=== PATIENT | male | born 1960 | race Caucasian/White ===

== ENCOUNTER → 2020-02-12 09:26 | Outpatient (BNVA) | payer BC, SELFPAY | PROVIDERS: Family Provider Nurse Practitioner Family; PCP Nurse Practitioner Family; Visit Provider Nurse Practitioner Family | DX: Z79.899 Other long term (current) drug therapy (principal); Z13.220 Encounter for screening for lipoid disorders; Z12.5 Encounter for screening for malignant neoplasm of prostate | CPT/HCPCS: 80048; 80061; G0103 ==

== ENCOUNTER → 2020-04-08 11:09 | Outpatient (BNVA) | payer BC, SELFPAY | PROVIDERS: Family Provider Nurse Practitioner Family; PCP Nurse Practitioner Family; Visit Provider Nurse Practitioner Family | DX: Z11.59 Encounter for screening for other viral diseases (principal) | CPT/HCPCS: 87635 ==

== ENCOUNTER → 2021-01-03 15:36 | Outpatient (BNVA) | payer BC, SELFPAY | PROVIDERS: Family Provider Nurse Practitioner Family; PCP Nurse Practitioner Family; Visit Provider Nurse Practitioner Family | DX: Z00.00 Encounter for general adult medical examination without abnormal findings (principal); I10 Essential (primary) hypertension | CPT/HCPCS: 80048 ==

== ENCOUNTER 2021-01-18 09:52 | Emergency (ER) | payer BC, SELFPAY ==
[2021-01-18 09:56] VITALS: BP 114/68; PULSE 61; RESP 19; TEMP 36.4; O2SAT 92; BMI 31.7
--- NOTE | 2021-01-18 10:01 | XR_ITS ---
WS: [id number] Portable AP upright chest, 01/18/2021 Clinical Data: chest pain Comparison: None. Findings: No nodules, masses or effusions are seen. The heart is normal. The pulmonary vascularity is not increased. No pneumonia or pneumothorax is seen. There are monitor leads on the chest wall. XR/XR chest 1V portable [id number] Impression: Negative chest.
[2021-01-18 10:02] VITALS: O2SAT 96
--- NOTE | 2021-01-18 10:02 | ECG_ITS ---
[facility] Test Date: 2021-01-18 Pat Name: Terrie Faustin Department: Room: Gender: Male Service Now Developer: : 1960 Requested By: Tavon Cain Order Number: [id number] Alex MD: Kathy Mistry M.D. Measurements Intervals [place] Rate: 63 P: 31 PA: 170 QRS: -12 QRSD: 93 T: 26 QT: 418 QTc: 430 Interpretive Statements SINUS RHYTHM MODERATE VOLTAGE CRITERIA FOR LVH, CONSIDER NORMAL VARIANT [MEETS CRITERIA IN ONE OF: R(aVL), S(V1), R(V5), R(V5/V6)+S(V1)] No previous ECG available for comparison Electronically Signed On 01-19-2021 7:38:17 CDT by Kathy Mistry M.D. [id number]
--- NOTE | 2021-01-18 10:03 | W.ED.CHESTPA ---
HPI - Chest Pain General: Chief Complaint: Chest Pain Stated Complaint: CHEST PAIN, SYNCOPAL EPISODE Time Seen by Provider: 01/18/21 09:55 History of Present Illness: HPI narrative: 60-year-old male presents emergency room with complaint chest pain and had a syncopal episode. He went to a local clinic with his complaint of chest pain they gave him a sublingual nitro he was going to drive himself to the emergency room we went out to the parking lot he had a syncopal-like episodes became very diaphoretic states he showed some chest discomfort its mostly what he calls described as sore there is no real radiation of pain is not been short of breath with it. He has no known history of coronary disease diabetes or smoking he did previously had a stress test that he was told was normal but it was over a decade ago. Not recently been ill with cough cold fever sweats or chills. MD complaint: chest pain Onset (ago): hour(s) Timing of current episode: episodic Prior episodes: No Onset: during rest and associated with drug use (Syncopal episode after use of sublingual nitro) Pain location: left chest Pain radiation: none Severity: mild Quality: tightness, aching and heaviness Relieving factors: nothing Exacerbating factors: nothing Associated symptoms: Reports diaphoresis, nausea and syncope; Deny abdominal pain, dyspnea, fever(s), leg edema, palpitations, sense of impending doom or vomiting Treatment prior to arrival: nitroglycerin Review of Systems Const: Reports: diaphoresis; Denies: fever(s) ENMT: Denies: throat pain, ear or mastoid pain, nasal discharge or nasal congestion Card: Reports: syncope; Denies: palpitations Resp: Denies: dyspnea GI: Reports: nausea; Denies: abdominal pain or vomiting : Denies: flank pain, dysuria, urinary frequency or urinary urgency Skin/Breast: Denies: rash or pruritus PFSH ED PFSH: Medical History HTN (hypertension) Family History Father Hypertension Social History Second hand smoke exposure: No Physical Exam Const: COMMON NORMALS: no acute distress GENERAL APPEARANCE: cooperative and comfortable ORIENTATION/CONSCIOUSNESS: Yes awake, Yes oriented to person, Yes oriented to place and Yes oriented to time HENMT: COMMON NORMALS: normocephalic, atraumatic, hearing grossly normal bilaterally and external ears normal HEAD & SCALP: normocephalic and atraumatic EXTERNAL EAR: Yes external ears normal Eye: COMMON NORMALS: Equal, round and reactive pupils present, EOMs intact bilaterally, conjunctivae normal and no scleral icterus CONJUNCTIVA: Yes conjunctivae normal PUPIL: Yes Equal, round and reactive pupils present Neck/C-Spine: COMMON NORMALS: full ROM, no lymphadenopathy, supple and no JVD Lymph: LYMPHATIC: no lymphadenopathy noted and no lymphedema noted Resp: COMMON NORMALS: normal respiratory effort, No retractions, No use of accessory muscles and clear to auscultation bilaterally AUSCULTATION: clear to auscultation bilaterally Cardio: COMMON NORMALS: no JVD, regular rate, regular rhythm and No murmurs present (Cardio) RATE: regular rate RHYTHM: regular rhythm GI: COMMON NORMALS: Soft to palpation and No hepatosplenomegaly present AUSCULTATION: Yes normoactive bowel sounds PALPATION: Yes Soft to palpation, No Tenderness to palpation present (GI), No Guarding due to palpation present (GI) and Yes No hepatosplenomegaly present Extremity: COMMON NORMALS: normal to inspection, capillary refill normal, no clubbing, cyanosis or edema, no calf tenderness and no pedal edema Neuro: SENSORIUM/ORIENTATION: Yes oriented to person, Yes oriented to place and Yes oriented to time Skin: COMMON NORMALS: no rashes or lesions noted GENERAL SKIN EXAM: no rashes or lesions noted Course Vital Signs: Vital signs: Vital Signs Temperature 97.5 F L 01/18/21 09:56 Pulse Rate 61 01/18/21 09:56 Respiratory Rate 19 H 01/18/21 09:56 Blood Pressure 114/68 01/18/21 09:56 Pulse Oximetry 96 01/18/21 10:02 MDM - Chest Pain MDM Narrative: Medical decision making narrative: Serial cardiac enzymes negative. Ordering to have him take baby aspirin daily set him up for an outpatient Lexiscan sestamibi stress test return to the emergency room if he has further problems. Lab Data: Labs: Lab Results 01/18/21 01/18/21 01/18/21 Range/Units 10:30 10:30 10:30 WBC 6.8 (4.0-10.0) 10^3/ uL RBC 4.86 (4.1-5.3) 10^6/u L Hgb 13.8 (11.7-16.6) g/dL Hct 41.3 L (42.0-52.0) % MCV 85.0 (80-94) fL MCH 28.4 (28.0-34.0) pg MCHC 33.4 (30.0-36.0) g/dL RDW 13.5 (12.1-15.1) % Plt Count 215 (130-400) 10^3/c mm MPV 10.8 H (7.4-10.4) fL Neut % (Auto) 58.1 % Lymph % (Auto) 29.5 % Robertson % (Auto) 9.1 % Eos % (Auto) 2.6 % Baso % (Auto) 0.4 % Neut # (Auto) 3.95 (1.8-7.7) 10^3/u L Lymph # (Auto) 2.0 (0.8-4.8) 10^3/u L Robertson # (Auto) 0.6 (0.2-0.9) 10^3/u L Eos # (Auto) 0.2 (0.0-0.8) 10^3/u L Baso # (Auto) 0.0 (0.0-0.1) 10^3/u L Nucleated RBC % (a uto) 0 % Nucleated RBCs # 0.0 /100WBC Sodium 139 (136-145) mmol/L Potassium 4.3 (3.5-5.1) mmol/L Chloride 103 (98-107) mmol/L Carbon Dioxide 24 (22-29) mmol/L Anion Gap 16.3 (5-19) BUN 7 (6-20) mg/dL Creatinine 0.7 (0.7-1.2) mg/dL GFR Calculation 115.4 (90-130) mL/min Glucose 132 H (65-115) mg/dL Calculated Osmolal ity 288 (285-295) mOsm/k g Calcium 8.6 (8.5-10.5) mg/dL Total Bilirubin 0.5 (0.15-1.2) mg/dL AST 13 (0-40) U/L ALT 17 (0-41) U/L Alkaline Phosphata se 104 (40-130) IU/L Troponin T Baselin e 6 (0-15) ng/L Troponin T 120 Min yocha dehe (0-15) ng/L Delta Troponin T (0-10) ABS# Total Protein 6.5 L (6.6-8.7) g/dL Albumin 4.1 (3.5-5.2) g/dL Globulin 2.4 (1.3-4.6) g/dL 01/18/21 Range/Units 12:48 WBC (4.0-10.0) 10^3/ uL RBC (4.1-5.3) 10^6/u L Hgb (11.7-16.6) g/dL Hct (42.0-52.0) % MCV (80-94) fL MCH (28.0-34.0) pg MCHC (30.0-36.0) g/dL RDW (12.1-15.1) % Plt Count (130-400) 10^3/c mm MPV (7.4-10.4) fL Neut % (Auto) % Lymph % (Auto) % Robertson % (Auto) % Eos % (Auto) % Baso % (Auto) % Neut # (Auto) (1.8-7.7) 10^3/u L Lymph # (Auto) (0.8-4.8) 10^3/u L Robertson # (Auto) (0.2-0.9) 10^3/u L Eos # (Auto) (0.0-0.8) 10^3/u L Baso # (Auto) (0.0-0.1) 10^3/u L Nucleated RBC % (a uto) % Nucleated RBCs # /100WBC Sodium (136-145) mmol/L Potassium (3.5-5.1) mmol/L Chloride (98-107) mmol/L Carbon Dioxide (22-29) mmol/L Anion Gap (5-19) BUN (6-20) mg/dL Creatinine (0.7-1.2) mg/dL GFR Calculation (90-130) mL/min Glucose (65-115) mg/dL Calculated Osmolal ity (285-295) mOsm/k g Calcium (8.5-10.5) mg/dL Total Bilirubin (0.15-1.2) mg/dL AST (0-40) U/L ALT (0-41) U/L Alkaline Phosphata se (40-130) IU/L Troponin T Baselin e (0-15) ng/L Troponin T 120 Min yocha dehe 6.00 (0-15) ng/L Delta Troponin T 0 (0-10) ABS# Total Protein (6.6-8.7) g/dL Albumin (3.5-5.2) g/dL Globulin (1.3-4.6) g/dL Discharge Plan Discharge Patient Disposition: Home Clinical Impression: Atypical chest pain Condition: Stable Prescriptions: New aspirin 81 mg tablet,delayed release (DR/EC) 81 mg PO DAILY Qty: 30 RF: 0 No Action multivitamin Tablet 1 tab PO QAM RF: 0 hydrocodone-acetaminophen 10-325 mg tablet 1 tab PO Q4H PRN (Reason: Pain) RF: 0 Tylenol Extra Strength 500 mg Tablet 1,000 mg PO PRN RF: 0 amoxicillin 500 mg tablet 500 mg PO QID RF: 0 ibuprofen 200 mg Tablet 400 mg PO PRN RF: 0 lisinopril 10 mg tablet 10 mg PO BEDTIME RF: 0 Discharge Orders: Discharge ED (Routine); Ordered 01/18/21 Ordered By: Tavon Pleitez Referrals: Sheree Forman FNP [Primary Care Provider] - Discharge Diet: Usual diet Discharge Activity: Limit activity as instructed Patient Instructions: Opioid Safety Activity Restrictions/Additional Instructions: Case management will set up a stress test for you. Take baby aspirin daily follow-up with your primary care doctor next week return to the emergency room if you have any further episodes of chest discomfort Coding Level of Care Code ED Operator Specialist Communications for [employer] Fwd Exam Comprehensive
[2021-01-18] MEDS: aspirin 81 mg Chew Tablet 324 MG PO (10:15)
[2021-01-18 10:42] LABS: Basophils % 0.4 %; Eosinophils # 0.2 10^3/uL (0.0-0.8); Eosinophils % 2.6 %; Hematocrit 41.3 % (42.0-52.0); Hemoglobin 13.8 g/dL (11.7-16.6); Lymphocytes % 29.5 %; Mean Corpuscular HGB Conc 33.4 g/dL (30.0-36.0); Mean Corpuscular Hemoglobin 28.4 pg (28.0-34.0); Mean Platelet Volume 10.8 fL (7.4-10.4); Monocytes # 0.6 10^3/uL (0.2-0.9); Monocytes % 9.1 %; Neutrophils # 3.95 10^3/uL (1.8-7.7); Neutrophils % 58.1 %; Nucleated Red Blood Cells % 0 %; Platelet Count 215 10^3/cmm (130-400); Red Blood Count 4.86 10^6/uL (4.1-5.3); Red Cell Distribution Width 13.5 % (12.1-15.1); White Blood Count 6.8 10^3/uL (4.0-10.0)
[2021-01-18 11:08] LABS: Troponin(5th) Baseline 6 ng/L (0-15)
[2021-01-18 11:11] LABS: Alanine Aminotransferase 17 U/L (0-41); Albumin Level 4.1 g/dL (3.5-5.2); Alkaline Phosphatase 104 IU/L (40-130); Anion Gap 16.3 (5-19); Aspartate Amino Transferase 13 U/L (0-40); Blood Urea Nitrogen 7 mg/dL (6-20); Calcium 8.6 mg/dL (8.5-10.5); Carbon Dioxide 24 mmol/L (22-29); Chloride 103 mmol/L (98-107); Creatinine Clr Calc Pharmacy 151.2971; Globulin 2.4 g/dL (1.3-4.6); Glomerular Filtration Rate 115.4 mL/min (90-130); Glucose 132 mg/dL (65-115); Osmolality Calculated 288 mOsm/kg (285-295); Potassium 4.3 mmol/L (3.5-5.1); Sodium 139 mmol/L (136-145); Total Bilirubin 0.5 mg/dL (0.15-1.2); Total Protein 6.5 g/dL (6.6-8.7)
--- NOTE | 2021-01-18 12:02 | ECG_ITS ---
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 Measurements Intervals [place] Rate: 56 P: 51 PA: 168 QRS: 3 QRSD: 97 T: 56 QT: 424 QTc: 410 Interpretive Statements SINUS BRADYCARDIA Compared to ECG 01/18/2021 10:15:58 Sinus rhythm no longer present Electronically Signed On 01-19-2021 10:01:12 CDT by Kathy Mistry M.D. [email or web address].[facility]ubajeff[facility] comprehensive health centeriMedicareblanchard valley health systemOomba/store/OM/[id number]
[2021-01-18 13:22] LABS: Troponin 5 2HR Delta 0 ABS# (0-10)
--- NOTE | 2021-01-23 15:46 | DCPLANNER ---
late entry - case reviewer had message to schedule an outpatient stress test for patient. quality control systems manager faxed signed order on 01.18.21 to centralized scheduling, who will call patient with appointment information. quality control systems manager had message on 01.23.21 that patients insurance declined the stress test.
== END 2021-01-18 14:18 | disposition home or self-care (01) ==
PROVIDERS: Emergency Provider Family Medicine; PCP Nurse Practitioner Family
DX: R07.89 Other chest pain (principal); I10 Essential (primary) hypertension
CPT/HCPCS: 36415; 71045; 80053; 84484; 85025; 93005; 99283

== ENCOUNTER 2021-01-19 06:00 | Outpatient (CLI) | payer BC, SELFPAY | END 2021-01-19 06:01 | disposition home or self-care (01) | LOC: LAB 10-19 15:06 | PROVIDERS: PCP Nurse Practitioner Family; Visit Provider Nurse Practitioner Family | DX: R07.89 Other chest pain (principal) | CPT/HCPCS: 36416; 80061; 82962; 84484; 86141 ==

== ENCOUNTER → 2021-01-20 10:58 | Outpatient (BNVA) | payer BC, SELFPAY | PROVIDERS: PCP Nurse Practitioner Family; Visit Provider Nurse Practitioner Family | DX: R07.89 Other chest pain (principal); R10.12 Left upper quadrant pain; R10.812 Left upper quadrant abdominal tenderness | CPT/HCPCS: 82150; 83690 ==

== ENCOUNTER 2021-02-10 08:45 | Outpatient (CLI) | payer BC, SELFPAY ==
[2021-02-10 09:00] VITALS: BP 124/81; PULSE 75; RESP 16; TEMP 36.6; O2SAT 97; BMI 30.8
[2021-02-10 09:50] VITALS: BP 112/71; PULSE 65; RESP 17; O2SAT 96
[2021-02-10 10:50] VITALS: BP 99/64; PULSE 74; RESP 16; TEMP 36.7
== END 2021-02-10 08:46 | disposition home or self-care (01) ==
PROVIDERS: PCP Nurse Practitioner Family; Visit Provider Nurse Practitioner Family
DX: U07.1 COVID-19 (principal)
CPT/HCPCS: 96365

== ENCOUNTER → 2021-12-28 09:29 | Outpatient (BNVA) | payer BC, SELFPAY | PROVIDERS: PCP Clinical Nurse Specialist Adult Health; Visit Provider Clinical Nurse Specialist Adult Health | DX: I10 Essential (primary) hypertension (principal); N40.0 Benign prostatic hyperplasia without lower urinary tract symptoms | CPT/HCPCS: 80053; 84153; 85025 ==

== ENCOUNTER → 2022-12-18 08:20 | Outpatient (BNVA) | payer BC, SELFPAY | PROVIDERS: PCP Clinical Nurse Specialist Adult Health; Visit Provider Clinical Nurse Specialist Adult Health | DX: Z00.00 Encounter for general adult medical examination without abnormal findings (principal); I10 Essential (primary) hypertension; N52.9 Male erectile dysfunction, unspecified | CPT/HCPCS: 80053; 80061; 85025 ==

== ENCOUNTER → 2023-02-22 08:26 | Outpatient (BNVA) | payer BC, SELFPAY | PROVIDERS: PCP Clinical Nurse Specialist Adult Health; Visit Provider Registered Nurse | DX: Z11.52 Encounter for screening for COVID-19 (principal); R68.89 Other general symptoms and signs; U07.1 COVID-19; J02.9 Acute pharyngitis, unspecified | CPT/HCPCS: 87400; 87426 ==

== ENCOUNTER → 2023-12-20 07:31 | Outpatient (BNVA) | payer BC, SELFPAY | PROVIDERS: PCP Clinical Nurse Specialist Adult Health; Visit Provider Clinical Nurse Specialist Adult Health | DX: Z00.00 Encounter for general adult medical examination without abnormal findings (principal) | CPT/HCPCS: 80053; 80061; 84153; 85025 ==

== ENCOUNTER → 2024-07-02 09:41 | Outpatient (BNVA) | payer BC, SELFPAY | PROVIDERS: PCP Clinical Nurse Specialist Adult Health; Visit Provider Family Medicine | DX: J40 Bronchitis, not specified as acute or chronic (principal) | CPT/HCPCS: 87400; 87426 ==

== ENCOUNTER → 2024-10-26 11:07 | Outpatient (BNVA) | payer BC, SELFPAY | PROVIDERS: PCP Family Medicine; Visit Provider Family Medicine | DX: I10 Essential (primary) hypertension (principal) | CPT/HCPCS: 80053; 85025 ==

== ENCOUNTER 2025-03-22 08:29 | Emergency (ER) | payer BC, SELFPAY ==
--- OUTSIDE RECORDS SUMMARY | 2025-03-22 08:35 | XMS_ITS | Encounter Summary ---
Author Organization [facility] Address [address] [place] [address] Care Team Providers Care Train Control Technician Name Role Phone EJ Perry Sr., Michael Dave Primary Care Pro vider Encounter Details Date Type Department Care Team (Late st Contact Info) Description 04/07/2020 Ancillary Orders [facility] [address] [place] [phone] Sheree Forman FNP [address] [place] [phone] Cough Social History Tobacco Use Types Packs/Day Years Used Date Smoking Tobacco: Former Cigarettes Q uit: 08/08/2016 Smokeless Tobacco: Never Alcohol Use Standard Drinks/Week Comments No 0 (1 standard drink = 0.6 oz pur e alcohol) Sex and Gender Information Value Date Recorded Sex Assigned at Not on file 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 No / Unsure 04/07/2020 11:43 AM CDT documented as of this encounter Plan of Treatment Not on file documented as of this encounter Results * XR CHEST PA AND LATERAL 2 VW (04/07/2020 12:23 PM CDT) Anatomical Region Laterality Modality Chest Computed Radiogr aphy 04/08/2020 10:0 7 AM CDT Impressions 04/08/2020 10:07 AM CDT IMPRESSION: Please see below. EXAM: XR CHEST PA AND LATERAL 2 VW DATE/TIME OF EXAM: 04/07/2020 12:23 PM HISTORY: See Diagnosis COMPARISON: None TECHNIQUE: Frontal and lateral radiographs of the chest were obtained. FINDINGS: There is no focal airspace opacity, pleural effusion or pneumothorax. The cardiomediastinal silhouette is within normal limits. No acute bony abnormality identified. IMPRESSION: No evidence of an acute cardiopulmonary process. Narrative Procedure Note Hortencia Garduno MD - 04/08/2020 IMPRESSION: Please see below. EXAM: XR CHEST PA AND LATERAL 2 VW DATE/TIME OF EXAM: 04/07/2020 12:23 PM HISTORY: See Diagnosis COMPARISON: None TECHNIQUE: Frontal and lateral radiographs of the chest were obtained. FINDINGS: There is no focal airspace opacity, pleural effusion or pneumothorax. The cardiomediastinal silhouette is within normal limits. No acute bony abnormality identified. IMPRESSION: No evidence of an acute cardiopulmonary process. Sheree [facility] ORDER[facility] ES Final Result documented in this encounter Visit Diagnoses Diagnosis Cough Cough documented in this encounter Care Teams Train Control Technician Relationship Specialty Start Date End Date Jeremias Perry Sr., FNP [address] [place] [address] PCP - General NURSE PRACTITIONER 01/03/15 documented as of this encounter
--- OUTSIDE RECORDS SUMMARY | 2025-03-22 08:35 | XMS_ITS | Encounter Summary ---
Author Organization [facility] Address [address] [place] [address] Care Team Providers Care Mid Teacher Name Role Phone EJ Perry Sr., Jeremias Dunn Primary Care Pro vider Encounter Details Date Type Department Care Team (Latest Contact Info) Description 07/23/2000 Outpatient Historical [facility]- [address] [place] [address] Heriberto Cheung MD [address] 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
--- OUTSIDE RECORDS SUMMARY | 2025-03-22 08:35 | XMS_ITS | Clinical Summary ---
[facility] Organization [facility] Address [address] [place] [address] Phone Care Team Providers Care Solar Design Engineer Name Role Phone Vicky Reyes, EJ, Jeremias Dunn Primary Care Pro vider Medications aspirin (ECOTRIN EC) 81 mg Tablet, Delayed Release (E.C.) Take 81 mg by mouth daily. 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 Gender Identity Not on file Sexual Orientation Not on file Last Filed Vital Signs Vital Sign Reading Time Taken Comments Blood Pressure 138/85 01/08/2018 3:48 AM CDT Pulse - - Temperature 36.4 C (97.5 F) 01/08/2018 3:48 AM CDT Respiratory Rate 20 01/08/2018 3:48 AM CDT Oxygen Saturation 96% 01/08/2018 3:48 AM CDT Inhaled Oxygen Concentration - - Weight 122 kg (269 lb) 01/08/2018 12:25 AM CDT Height 190.5 cm (6' 3 ) 01/08/2018 12:25 AM CDT Body Mass Index 33.62 01/08/2018 12:25 AM CDT Plan of Treatment Health Maintenance Due Date Last Done Comments DTAP/TDAP/TD VACCINES (1 - Tdap) 1980 COLORECTAL SCREENING 2006 Colorectal Cancer Screening 2006 FIT-DNA Q 3 years 2006 FIT/FOBT Q 1 year 2006 Flex Sig/CT Colonography Q 5 years 2006 ZOSTER VACCINE (1 of 2) 08/12/2011 INFLUENZA VACCINE (#1) 2025 RSV VACCINE (60+ or ) (1 - 1-dose 75+ series) 2036 Insurance [facility] EPO Care Teams Solar Design Engineer Relationship Specialty Start Date End Date Jeremias Perry Sr., FNP [address] [place], [place] [address] PCP - General NURSE PRACTITIONER 01/03/15
--- OUTSIDE RECORDS SUMMARY | 2025-03-22 08:35 | XMS_ITS | Clinical Summary ---
Author Organization [facility] Address [address] Kay: [place] [address] Care Team Providers Care Filing Machine Operator Name Role Phone EJ Perry Sr., Jeremias Dunn Primary Care Pro vider Medications aspirin (ECOTRIN EC) 81 mg Tablet, Delayed Release (E.C.) Take 81 mg by mouth daily. 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
[2025-03-22 08:37] VITALS: BP 151/103; PULSE 89; RESP 17; TEMP 36.4; O2SAT 96; BMI 33.3
--- NOTE | 2025-03-22 08:48 | ED_ITS ---
HPI - Extremity Problem 2 General: Chief complaint: Extremity Problem,Nontraumatic Stated complaint: Numbness in the right foot/leg and sore spot on R Time Seen by Provider: 03/22/25 08:37 History of Present Illness: 64-year-old male presents emergency room complaining of intermittent numbness in his right foot and a focal area of discomfort on the medial thigh just proximal to the knee. No history of any trauma no falls. No history of DVT or PE. He is not currently having any symptoms. Associated symptoms: Deny chest pain, fever(s) or rash Related Data Home Medications ?Medication ?Instructions ?Recorded ?Confirmed aspirin 81 mg tablet,delayed 81 mg PO DAILY PRN Pain 1 03/22/25 release fluticasone propionate 50 2 spray intranasal DAILY PRN 03/22/25 03/22/25 mcg/actuation nasal allergies spray,suspension (Flonase Allergy Relief) Previous Rx's ?Medication ?Instructions ?Recorded atorvastatin 40 mg tablet (Lipitor) 40 mg PO DAILY #30 tabs 03/22/25 clopidogrel 75 mg tablet 75 mg PO DAILY #30 tabs 03/10 09/01 lisinopril 10 mg tablet 10 mg PO DAILY #90 tabs 03/10 09/01 tadalafil 5 mg tablet 5 mg PO DAILY PRN BPH sympto ms #30 03/22/25 tabs Allergies Allergy/AdvReac Type Severity Reaction Status Date / Time No Known Allergies Allergy Verified 11/02/24 16:48 Review of Systems 2 Const: Denies: fever(s) or chills Card: Denies: chest pain Resp: Denies: dyspnea GI: Denies: abdominal pain : Denies: dysuria, urinary frequency or urinary urgency Musc: Denies: neck pain or back pain Skin/Breast: Denies: rash PFSH ED 2 PFSH: Medical History (Updated 03/22/25 @ 10:29 by Tavon Pleitez DO) Hx of [place]ck[place] spotted fever Colon polyps Erectile dysfunction on viagra PRN for this Diverticulitis BPH (benign prostatic hyperplasia) on cialis for this HTN (hypertension) Surgical History (Updated 12/20/23 @ 07:17 by Harvey Mckeon NP) Hx of colonoscopy with polypectomy 5 yrs ago Presence of tooth-root and mandibular implants Family History Father Hypertension Denies family history of Diabetes CAD (coronary artery disease) Social History Smoking and tobacco/nicotine status: former use of tobacco/nicotine Quit status (tobacco/nicotine): has quit using Year quit tobacco: 2015 Former quit date comment: 30 pack year history Alcohol intake: never Substance/Drug Use: never 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 Physical Exam 2 Const: COMMON NORMALS: no acute distress GENERAL APPEARANCE: cooperative and comfortable ORIENTATION/CONSCIOUSNESS: Yes awake, Yes oriented to person, Yes oriented to place and Yes oriented to time HENMT: COMMON NORMALS: normocephalic, atraumatic and hearing grossly normal bilaterally HEAD & SCALP: normocephalic and atraumatic Resp: COMMON NORMALS: normal respiratory effort, No retractions, No use of accessory muscles and clear to auscultation bilaterally AUSCULTATION: clear to auscultation bilaterally Cardio: COMMON NORMALS: regular rate, regular rhythm and No murmurs present (Cardio) RATE: regular rate RHYTHM: regular rhythm GI: COMMON NORMALS: Soft to palpation and No hepatosplenomegaly present A USCULTATION: Yes normoactive bowel sounds PALPATION: Yes Soft to palpation, No Tenderness to palpation present (GI), No Guarding due to palpation present (GI) and Yes No hepatosplenomegaly present Extremity: COMMON NORMALS: normal to inspection, capillary refill normal, no clubbing, cyanosis or edema, no calf tenderness and no pedal edema Neuro: SENSORIUM/ORIENTATION: Yes oriented to person, Yes oriented to place and Yes oriented to time OTHER: No focal neurologic deficits noted NIH 0 Patient has slight decrease sensation on his right foot but not proximally. The calf and thigh are normal. There is no swelling negative Homans. The area of concern right medial thigh there is no redness or erythema or swelling and no lymph nodes no elicitable pain at this time. Skin: COMMON NORMALS: no rashes or lesions noted GENERAL SKIN EXAM: no rashes or lesions noted Course 2 Vital Signs: Vital signs: Vital Signs Temperature 97.6 F 03/22/25 08:37 Pulse Rate 67 03/22/25 11:01 Respiratory Rate 17 03/22/25 08:37 Blood Pressure 124/78 03/22/25 11:01 Pulse Oximetry 96 03/22/25 11:01 Oxygen Delivery Me thod Room Air 03/22/25 08:37 MDM - Extremity (Nontraumatic) Medical Decision Making Patient seen and evaluated CT ordered NIH performed. Consideration of vascular causes peripheral neuropathies or CVA Stroke score negative. CT head negative for acute changes. Patient does have an old lacunar infarct. His symptoms today only involve the distal part of the foot nothing proximal I think that is more of a peripheral neuropathy in his right foot she does seem to have had a previous stroke. Recommend he start on dual platelet therapy and statin and set him up for an outpatient MRI follow-up with his primary care doctor regarding his peripheral neuropathy. Lab Data 03/22/25 08:52 03/22/25 08:[address] 03/22/25 09:55 IMPRESSION: 1. No acute intracranial hemorrhage or edema. 2. Mild atrophy and small vessel changes. 3. Prior lacunar infarct posterior limb RIGHT internal capsule. Laboratory Results WBC 3.89 10^3/uL (3.29-11.43) 03/22/25 08:52 RBC 5.35 10^6/uL (3.85-5.65) 03/22/25 08:52 Hgb 15.40 g/dL (11.27-16.99) 03/22/25 08:52 Hct 46.1 % (37-53) 03/22/25 08:52 MCV 86.2 fl (82-101) 03/22/25 08:52 MCH 28.8 pg (27-33) 03/22/25 08:52 MCHC 33.4 g/dL (30-55) 03/22/25 08:52 RDW 13.0 % (12.1-15.1) 03/22/25 08:52 Plt Count 175 10^3/cmm (157-399) 03/22/25 08:52 MPV 10.3 fL (7.4-10.4) 03/22/25 08:52 Neut % (Auto) 62.2 % 03/22/25 08:52 Lymph % (Auto) 25.4 % 03/22/25 08:52 Harris % (Auto) 8.7 % 03/22/25 08:52 Eos % (Auto) 2.6 % 03/22/25 08:52 Baso % (Auto) 0.8 % 03/22/25 08:52 Neut # (Auto) 2.42 10^3/uL (1.8-7.7) 03/22/25 08:52 Lymph # (Auto) 1.0 10^3/uL (0.8-4.8) 03/22/25 08:52 Harris # (Auto) 0.3 10^3/uL (0.2-0.9) 03/22/25 08:52 Eos # (Auto) 0.1 10^3/uL (0.0-0.8) 03/22/25 08:52 Baso # (Auto) 0.0 10^3/uL (0.0-0.1) 03/22/25 08:52 Nucleated RBC % (auto) 0 % 03/22/25 08:52 Nucleated RBCs # 0.0 /100WBC 03/22/25 08:52 Sodium 135 mmol/L (136-145) L 03/22/25 08:52 Potassium 4.2 mmol/L (3.5-5.1) 03/22/25 08:52 Chloride 100 mmol/L (98-107) 03/22/25 08:52 Carbon Dioxide 21 mmol/L (22-29) L 03/22/25 08:52 Anion Gap 18.2 (5-19) 03/22/25 08:52 BUN 12 mg/dL (8-23) 03/22/25 08:52 Creatinine 0.8 mg/dL (0.7-1.2) 03/22/25 08:52 GFR Calculation 97.6 mL/min (90-130) 03/22/25 08:52 Glucose 140 mg/dL (65-115) H 03/22/25 08:52 Calculated Osmolality 282 mOsm/kg (285-295) L 03/22/25 08:52 Calcium 8.9 mg/dL (8.5-10.5) 03/22/25 08:52 Total Bilirubin 0.6 mg/dL (0.15-1.2) 03/22/25 08:52 AST 18 U/L (0-40) 03/22/25 08:52 ALT 19 U/L (0-41) 03/22/25 08:52 Alkaline Phosphatase 99 U/L (40-130) 03/22/25 08:52 Total Protein 7.4 g/dL (6.6-8.7) 03/22/25 08:52 Albumin 4.1 g/dL (3.5-5.2) 03/22/25 08:52 Globulin 3.3 g/dL (1.3-4.6) 03/22/25 08:52 All radiology interpretation(s) finalized by discharge Discharge Plan Discharge Patient Disposition: Home Clinical Impression: Peripheral neuropathy HTN (hypertension) Qualifiers: Hypertension type: primary hypertension Qualified Code(s): I10 - Essential (primary) hypertension Condition: Stable Prescriptions: New clopidogrel 75 mg tablet 75 mg PO DAILY Qty: 30 0RF atorvastatin [Lipitor] 40 mg tablet 40 mg PO DAILY Qty: 30 0RF No Action lisinopril 10 mg tablet 10 mg PO DAILY Qty: 90 3RF tadalafil 5 mg tablet 5 mg PO DAILY PRN (Reason: BPH symptoms) Qty: 30 11RF aspirin [Aspir-81] 81 mg Tablet,Delayed Release (Dr/Ec) 81 mg PO DAILY PRN (Reason: Pain) fluticasone propionate [Flonase Allergy Relief] 50 mcg/actuation spray,suspension 2 spray intranasal DAILY PRN (Reason: allergies) Rx Instructions: administer into each nostril Discharge Orders: Discharge ED (Routine); Ordered 03/22/25 Ordered By: Tavon Pleitez Referrals: Natalia Celaya MD [Primary Care Provider, [facility]] Discharge Diet: Usual diet Discharge Activity: Resume usual activity Patient Instructions: Opioid Safety, Pain Management, Patient Portal & Clem Instructions Activity Restrictions/Additional Instructions: Thank you for choosing [facility] for your healthcare needs today. It is very important that you follow up as instructed or that you return to the Emergency Department should you have concerns or if your condition changes or worsens in any way. Emergency department visits are focused on emergent conditions, in some cases you may require further evaluation on an outpatient basis. You were seen in the emergency room with a complaint of numbness and tingling in your hand and your foot. There is no sign of stroke on your exam CT shows a old prior stroke but nothing that is acute. Physical exam did not show any signs of acute CVA. Her blood pressure is mildly elevated. Because of the finding of old stroke recommend you add Plavix and atorvastatin to your medicines you were given a prescription for these. You should follow-up with your primary care doctor to reevaluate your blood pressure within the next 7 to 14 days. (Please note that included in your discharge packet is information concerning opioid safety and pain management. This information is given to all patients were discharged from the ER regardless of their discharge diagnosis or the medicines they usually take or are prescribed.) Print Language: Lithuanian Coding Level of Care Code ED [employer] [place] NIH stroke score NIHSS Level Of Consciousness - 1a: 0 Level Of Consciousness Questions - 1b: Both Correct Level Of Consciousness Commands - 1c: Both Correct Best Gaze - 2: Normal Visual Golden - 3: No Visual Loss Facial Palsy - 4: Normal Motor Arm Right - 5: No Drift Motor Arm Left - 5: No Drift Motor Leg Right - 6: No Drift Motor Leg Left - 6: No Drift Limb Ataxia - 7: Absent Sensory - 8: Normal Best Language - 9: No Aphasia Dysarthia - 10: Normal Extinction And Inattention - 11: 0 Score Total Score: 0
[2025-03-22 09:00] LABS: Hematocrit 46.1 % (37-53); Hemoglobin 15.40 g/dL (11.27-16.99); Mean Corpuscular HGB Conc 33.4 g/dL (30-55); Mean Corpuscular Hemoglobin 28.8 pg (27-33); Mean Corpuscular Volume 86.2 fl (82-101); Nucleated Red Blood Cells % 0 %; Platelet Count 175 10^3/cmm (157-399); Red Blood Count 5.35 10^6/uL (3.85-5.65); White Blood Count 3.89 10^3/uL (3.29-11.43)
[2025-03-22 09:20] LABS: Alanine Aminotransferase 19 U/L (0-41); Albumin Level 4.1 g/dL (3.5-5.2); Alkaline Phosphatase 99 U/L (40-130); Anion Gap 18.2 (5-19); Aspartate Amino Transferase 18 U/L (0-40); Blood Urea Nitrogen 12 mg/dL (8-23); Calcium 8.9 mg/dL (8.5-10.5); Carbon Dioxide 21 mmol/L (22-29); Chloride 100 mmol/L (98-107); Creatinine Clr Calc Pharmacy 128.9932; Globulin 3.3 g/dL (1.3-4.6); Glucose 140 mg/dL (65-115); Osmolality Calculated 282 mOsm/kg (285-295); Potassium 4.2 mmol/L (3.5-5.1); Sodium 135 mmol/L (136-145); Total Protein 7.4 g/dL (6.6-8.7)
--- NOTE | 2025-03-22 09:55 | CT_ITS ---
WS: [id number] CT HEAD NONCONTRAST HISTORY: Extremity numbness TECHNIQUE: Contiguous axial imaging performed through the brain. Bone and soft tissue windows. Sagittal and coronal reformats reviewed. All CT scans at [facility] use at least one of these dose optimization techniques: automated exposure control; mA and/or kV adjustment per patient size (includes targeted exams where dose is matched to clinical indication); or iterative reconstruction. DLP: 1113.30 mGy.cm COMPARISON: None available. No acute intracranial hemorrhage, midline shift or mass effect. Mild atrophy and small vessel changes. Prior lacunar infarct in the posterior limb RIGHT internal capsule. Ventricles: Normal size with no hydrocephalus. No inferior displacement the cerebellar tonsils. Clivus and pituitary are negative. Paranasal sinuses: As visualized are clear. Mastoid air cells: Well pneumatized. Calvarium and scalp: Skull is intact with no soft tissue edema or swelling. CT/CT head wo con* [id number] IMPRESSION: 1. No acute intracranial hemorrhage or edema. 2. Mild atrophy and small vessel changes. 3. Prior lacunar infarct posterior limb RIGHT internal capsule.
[2025-03-22 11:01] VITALS: BP 124/78; PULSE 67; O2SAT 96
== END 2025-03-22 11:03 | disposition home or self-care (01) ==
PROVIDERS: Emergency Provider Family Medicine; PCP Family Medicine
DX: G62.9 Polyneuropathy, unspecified (principal); I10 Essential (primary) hypertension; Z79.82 Long term (current) use of aspirin
CPT/HCPCS: 36415; 70450; 80053; 85025; 99284

== ENCOUNTER → 2025-04-27 09:47 | Outpatient (BNVA) | payer BC, SELFPAY | PROVIDERS: PCP Family Medicine; Visit Provider Family Medicine | DX: I10 Essential (primary) hypertension (principal) | CPT/HCPCS: 80053; 80061; 85025 ==